=== PATIENT | male | born 1995 | race Caucasian/White ===

== ENCOUNTER 2019-03-03 15:43 | Inpatient (IN) | payer SELFPAY ==
[~2019-03-03] VITALS: Ht 172.7 cm; Wt 51.3 kg
[2019-03-03] MEDS ORDERED: IV NORMAL SALINE 1000ML BAG 1,000 ML IV ONE ×2 (16:15)
--- NOTE | 2019-03-03 16:15 | PHYS DOC ---
Adult General Chief Complaint Chief Complaint: BLOOD SUGAR PROBLEM HPI HPI Patient is a 23 year old male who presents with urinary frequency and excessive thirst, dizziness, blurred vision since last night. Patient is a diabetic type I and states that he does not regularly check his blood sugars and is on insulin. When I asked him how much insulin he takes he says it depends on how high his blood sugar is or what he's 8. Patient states he did not check his blood sugar this morning but yet gave himself 8 units of insulin. Patient states he ate a granola bar this morning. He denies any nausea, vomiting, abdominal pain, chest pain, shortness of air, diarrhea, numbness or tingling, syncope. Patient states he's also on lisinopril for high blood pressure. Patient states he took his medications as he supposed to this morning. Patient states he cannot remember the name of his primary care provider. Review of Systems Review of Systems Eyes: Denies change in visual acuity, redness, or eye pain. Blurred vision [] Neurologic: Dizziness, Denies headache, focal weakness or sensory changes [] Endocrine: polyuria or polydipsia [] All other systems were reviewed and found to be within normal limits, except as documented in this note. Current Medications Current Medications Current Medications Medications (Trade) Dose Ordered Sig/Edouard Start Time Stop Time Status Last Admin Dose Admin Acetaminophen (Tylenol) 650 mg PRN Q4HRS PRN 03/03/19 18:00 03/04/19 17:59 UNV Fentanyl Citrate (Fentanyl 2ml Vial) 50 mcg PRN Q1HR PRN 03/03/19 18:00 03/04/19 17:59 UNV Insulin Human Regular 150 ml @ 0 mls/hr CONT PRN PRN 03/03/19 17:00 03/03/19 23:00 03/03/19 17:21 7.3 MLS/HR Insulin Human Regular (HumuLIN R VIAL) 10 unit 1X ONCE 03/03/19 17:00 03/03/19 17:01 DC 03/03/19 17:07 10 UNIT Insulin Human Regular 150 unit/ Sodium Chloride 151.5 ml @ 0 mls/hr CONT PRN PRN 03/03/19 23:00 Ondansetron HCl (Zofran) 4 mg PRN Q8HRS PRN 03/03/19 18:00 03/04/19 17:59 UNV Potassium Chloride/Water 100 ml @ 100 mls/hr PRN Q1HR PRN 03/03/19 16:45 Sodium Chloride 1,000 ml @ 100 mls/hr Q10H 03/03/19 17:46 03/04/19 17:45 UNV Allergies Allergies Allergies Coded Allergies Type Severity Reaction Last Updated Verified No Known Drug Allergies 03/03/19 No Physical Exam Physical Exam Constitutional: Well developed, well nourished, no acute distress, non-toxic appearance. [] HENT: Normocephalic, atraumatic, bilateral external ears normal, oropharynx moist, no oral exudates, nose normal. [] Eyes: PERRLA, EOMI, conjunctiva normal, no discharge. [] Neck: Normal range of motion, no tenderness, supple, no stridor. [] Cardiovascular:Heart rate tachy regular rhythm, no murmur [] Lungs & Thorax: Bilateral breath sounds clear to auscultation [] Abdomen: Bowel sounds normal, soft, no tenderness, no masses, no pulsatile jeevan s. [] Skin: Pale, Warm, dry, no erythema, no rash. [] Extremities: No tenderness, no cyanosis, no clubbing, ROM intact, no edema. [] Neurologic: Alert and oriented X 3, normal motor function, normal sensory function, no focal deficits noted. [] Psychologic: Affect normal, judgement normal, mood normal. [] Current Patient Data Vital Signs Vital Signs Date Time Temp Pulse Resp B/P (MAP) Pulse Ox O2 Delivery O2 Flow Rate FiO2 03/03/19 15:58 97.7 136 18 98/70 (79) 98 Room Air 97.7 Lab Values Laboratory Tests Test 03/03/19 16:02 03/03/19 16:10 03/03/19 17:13 Glucose (Fingerstick) 495 mg/dL (70-99) H 423 mg/dL (70-99) H White Blood Count 11.7 x10^3/uL (4.0-11.0) H Red Blood Count 5.17 x10^6/uL (4.30-5.70) Hemoglobin 16.7 g/dL (13.0-17.5) Hematocrit 48.2 % (39.0-53.0) Mean Corpuscular Volume 93 fL (79-100) Mean Corpuscular Hemoglobin 32 pg (25-35) Mean Corpuscular Hemoglobin Concent 35 g/dL (31-37) Red Cell Distribution Width 12.5 % (11.5-14.5) Platelet Count 439 x10^3/uL (140-400) H Neutrophils (%) (Auto) 72 % (31-73) Lymphocytes (%) (Auto) 21 % (24-48) L Monocytes (%) (Auto) 6 % (0-9) Eosinophils (%) (Auto) 0 % (0-3) Basophils (%) (Auto) 1 % (0-3) Neutrophils # (Auto) 8.5 x10^3/uL (1.8-7.7) H Lymphocytes # (Auto) 2.5 x10^3/uL (1.0-4.8) Monocytes # (Auto) 0.7 x10^3/uL (0.0-1.1) Eosinophils # (Auto) 0.0 x10^3/uL (0.0-0.7) Basophils # (Auto) 0.1 x10^3/uL (0.0-0.2) Sodium Level 131 mmol/L (136-145) L Potassium Level 4.5 mmol/L (3.5-5.1) Chloride Level 88 mmol/L (98-107) L Carbon Dioxide Level 17 mmol/L (21-32) L Anion Gap 26 (6-14) H Blood Urea Nitrogen 14 mg/dL (8-26) Creatinine 1.6 mg/dL (0.7-1.3) H Estimated GFR (Cockcroft-Gault) 54.8 BUN/Creatinine Ratio 9 (6-20) Glucose Level 499 mg/dL (70-99) H Calcium Level 10.3 mg/dL (8.5-10.1) H Magnesium Level 1.9 mg/dL (1.8-2.4) Total Bilirubin 1.0 mg/dL (0.2-1.0) Aspartate Amino Transferase (AST) 11 U/L (15-37) L Alanine Aminotransferase (ALT) 36 U/L (16-63) Alkaline Phosphatase 93 U/L (46-116) Total Protein 8.0 g/dL (6.4-8.2) Albumin 4.0 g/dL (3.4-5.0) Albumin/Globulin Ratio 1.0 (1.0-1.7) Acetone Level Mod pos (NEG) Laboratory Tests 03/03/19 16:10 Laboratory Tests 03/03/19 16:10 EKG EKG Sinus Tachycardia, no STEMI Interpretation Time: [address] Peng Radiology/Procedures Radiology/Procedures [] Impressions: [facility] [address] [place] [address] IMAGING REPORT Signed PATIENT: SUGEY MALONE ACCOUNT: [id number] : 1995 LOCATION: ER AGE: 23 SEX: M EXAM STATUS: REG ER ORD. PHYSICIAN: TRACEY DILLON APRN REASON: dizziness PROCEDURE: PORTABLE CHEST 1V EXAM: Chest, single view. HISTORY: Dizziness. COMPARISON: None. FINDINGS: A frontal view of the chest is obtained. There is no infiltrate, pleural effusion or pneumothorax. The heart is normal in size. IMPRESSION: No acute pulmonary finding. Electronically signed by: Shanti Patterson MD (03/03/2019 4:36 PM) [facility] DICTATED and SIGNED BY: SHANTI PATTERSON MD DATE: 03/03/19 163 Course & Med Decision Making Course & Med Decision Making Alert and oriented. Ambulatory steady gait. Patient is pale but skin is warm and dry. PERRLA. Speaks in full clear sentences. Heart rate in the 130s, 20rr and blood pressure is 98/70. Glucose is 495 with ED glucose machine. Abdomen is soft and nontender. No extremity swelling. Lungs are clear to auscultation in all lobes. No focal motor or sensory deficits. 1642: Patient has become nauseated and is given zofran. I have also ordered Insulin 10u.\ I Have spoken to Dr. jaimes for admission. Patient going ICU. Dragon Disclaimer Dragon Disclaimer This electronic medical record was generated, in whole or in part, using a voice recognition dictation system. Departure Departure Impression: Primary Impression: DKA (diabetic ketoacidoses) Disposition: ADMITTED INPATIENT Admitting Physician: QUEENIE Condition: STABLE Referrals: NO PCP (PCP) Problem Qualifiers Primary Impression: DKA (diabetic ketoacidoses) Diabetes mellitus type: type 2 Diabetes mellitus complication detail: without coma Qualified Codes: E11.10 - Type 2 diabetes mellitus with ketoacidosis without coma TRACEY DILLON ACCOUNTING MANAGER Mar 03, 2019 16:15
[2019-03-03 16:20] LABS: BASO # 0.1 x10^3/uL (0.0-0.2); BASO % 1 % (0-3); EOS % 0 % (0-3); HEMATOCRIT 48.2 % (39.0-53.0); HEMOGLOBIN 16.7 g/dL (13.0-17.5); LYMPH # 2.5 x10^3/uL (1.0-4.8); LYMPH % 21 % (24-48); MEAN CORPUSCULAR HEMOGLOBIN 32 pg (25-35); MEAN CORPUSCULAR HGB CONC 35 g/dL (31-37); MEAN CORPUSCULAR VOLUME 93 fL (79-100); MONO # 0.7 x10^3/uL (0.0-1.1); MONO % 6 % (0-9); NEUT # 8.5 x10^3/uL (1.8-7.7); NEUT % 72 % (31-73); PLATELET COUNT 439 x10^3/uL (140-400); RED BLOOD COUNT 5.17 x10^6/uL (4.30-5.70); RED CELL DISTRIBUTION WIDTH 12.5 % (11.5-14.5); WHITE BLOOD COUNT 11.7 x10^3/uL (4.0-11.0)
[2019-03-03 16:30] LABS: CALCIUM 10.3 mg/dL (8.5-10.1); CREATININE 1.6 mg/dL (0.7-1.3); GFR 54.8; POTASSIUM 4.5 mmol/L (3.5-5.1)
--- NOTE | 2019-03-03 16:39 | RAD ---
EXAM: Chest, single view. HISTORY: Dizziness. COMPARISON: None. FINDINGS: A frontal view of the chest is obtained. There is no infiltrate, pleural effusion or pneumothorax. The heart is normal in size. IMPRESSION: No acute pulmonary finding. Electronically signed by: Shanti Jackson MD (03/03/2019 4:36 PM) [place] [id number]
[2019-03-03] MEDS ORDERED: POTASSIUM CHLORIDE 10MEQ 100 ML IV PRN ×3 (16:45)
[2019-03-03] MEDS ORDERED: ONDANSETRON PF 4 MG/2 ML VIAL. IV ONE (16:45)
[2019-03-03] MEDS ORDERED: INSULIN REGULAR 100 UNIT/ML 3ML VIAL. IV ONE (17:00)
[2019-03-03] MEDS ORDERED: INSULIN,REGULAR 150 UNIT DRIP 150 ML IV PRN (17:00)
[2019-03-03] MEDS ORDERED: IV NORMAL SALINE 1000ML BAG 1,000 ML IV SCH ×2 (17:46→19:00)
[2019-03-03] MEDS ORDERED: ACETAMINOPHEN 325 MG TABLET. PO PRN (18:00)
[2019-03-03] MEDS ORDERED: ONDANSETRON PF 4 MG/2 ML VIAL. IV PRN (18:00)
[2019-03-03 18:28] LABS: BARBITURATES NEG (NEG); BENZODIAZEPINES NEG (NEG); CANNABINOIDS NEG (NEG); COCAINE NEG (NEG); METHADONE NEG (NEG); OPIATES NEG (NEG); PHENCYCLIDINE NEG (NEG)
[2019-03-03 18:29] LABS: AMPHETAMINE/METHAMPHETAMINE NEG (NEG)
[2019-03-03 18:37] LABS: BILIRUBIN,URINE NEGATIVE (NEG); CLARITY,URINE CLEAR; COLOR,URINE YELLOW; NITRITE,URINE NEGATIVE (NEG); PROTEIN,URINE NEGATIVE (NEG-TRACE); UROBILINOGEN,URINE 0.2 mg/dL (0.2 mg/dL)
[2019-03-03 18:48] LABS: BACTERIA,URINE 0 /HPF (0-FEW); RBC,URINE 0 /HPF (0-2); SQUAMOUS EPITHELIAL CELL,UR OCC /LPF
[2019-03-03] MEDS ORDERED: IV DEXTROSE 5% - 0.9 % NACL 1,000 ML IV SCH (19:45)
[2019-03-03 20:00] VITALS: BP 100/63
[2019-03-03] MEDS: fentaNYL PF VIAL 100 MCG/2 ML VIAL IV PRN (20:12)
[2019-03-03 20:15] VITALS: BP 86/63
--- NOTE | 2019-03-03 20:20 | NUR ---
Patient arrived to room 104 via gurney accompanied by ED RN AND process safety engineering technologist at 1999. Patient attached to ICU monitors--ST on monitor. Patient on RA, no complaints of nausea at this time, complaining of 5/10 pain in stomach, S1S2 heart tones heard, bowel sounds active, IV patent, fluids running at 250 cc/hr--will change to D5NS per DKA protocol. Labs entered to be drawn at 2009. Insulin gtt running. Glucostabilizer initiated. Patient oriented to unit routines, call light, bed controls, tv controls, diet (ADA), and activity level (self turn in bed). Patient very pleasant and cooperative, all admission questions answered. Will continue to monitor--see admission documentation. Reassessments of Insulin gtt and fluids not completed by ED RN--documented as "not done" by this RN.
[2019-03-03 20:30] VITALS: BP 131/66
--- NOTE | 2019-03-03 20:40 | PDOC1 ---
History and Physical Date of Admission Date of Admission DATE: 03/03/19 TIME: 20:40 Source Source: Chart review, Patient History of Present Illness History of Present Illness Glen is a 23 year old male admit to ICU in DKA. He complained of increased urinary frequency and excessive thirst, dizziness, blurred vision for 12 hours about. Type 1 diabetic, and has not checked his blood sugar regularly. he was maybe not feeling well enough to provide a clear history in the ER, but later felt improved, and he reports taking 28 u Lantus and 20 u with meals, depending on volume of meals, Patient states he did not check his blood sugar this morning but yet gave himself 8 units of insulin. he has nausea but no pain, he lives with his brother, has no job, no insurance, cannot recall his PC provider Past Medical History Cardiovascular: No pertinent hx Pulmonary: No pertinent hx Endocrine: Diabetes Family History Family History: No Significant Social History Smoke: No ALCOHOL: none Current Problem List Problem List Problems Medical Problems: (1) DKA (diabetic ketoacidoses) Status: Acute Current Medications Current Medications Current Medications Sodium Chloride 1,000 ml @ 1,000 mls/hr 1X ONCE IV Last administered on 03/03/19at 16:16; Start 03/03/19 at 16:15; Stop 03/03/19 at 17:14; Status DC Sodium Chloride 1,000 ml @ 1,000 mls/hr 1X ONCE IV Last administered on 03/03/19at 17:09; Start 03/03/19 at 16:15; Stop 03/03/19 at 17:14; Status DC Ondansetron HCl (Zofran) 4 mg 1X ONCE IV Last administered on 03/03/19at 17:04; Start 03/03/19 at 16:45; Stop 03/03/19 at 16:46; Status DC Insulin Human Regular 150 unit/ Sodium Chloride 151.5 ml @ 0 mls/hr CONT PRN PRN IV PER PROTOCOL; Start 03/03/19 at 23:00 Potassium Chloride/Water 100 ml @ 100 mls/hr PRN Q1HR PRN IV SEE COMMENTS; Start 03/03/19 at 16:45 Potassium Chloride/Water 100 ml @ 100 mls/hr PRN Q1HR PRN IV SEE COMMENTS; Start 03/03/19 at 16:45 Potassium Chloride/Water 100 ml @ 100 mls/hr PRN Q1HR PRN IV SEE COMMENTS; Start 03/03/19 at 16:45 Insulin Human Regular (HumuLIN R VIAL) 10 unit 1X ONCE IV Last administered on 03/03/19at 17:07; Start 03/03/19 at 17:00; Stop 03/03/19 at 17:01; Status DC Insulin Human Regular 150 ml @ 0 mls/hr CONT PRN PRN IV PER PROTOCOL Last administered on 03/03/19at 17:21; Start 03/03/19 at 17:00; Stop 03/03/19 at 23:00 Ondansetron HCl (Zofran) 4 mg PRN Q8HRS PRN IV NAUSEA/VOMITING Last administered on 03/03/19at 17:59; Start 03/03/19 at 18:00; Stop 03/04/19 at 17:59 Fentanyl Citrate (Fentanyl 2ml Vial) 50 mcg PRN Q1HR PRN IV PAIN Last administered on 03/03/19at 20:12; Start 03/03/19 at 18:00; Stop 03/04/19 at 17:59 Sodium Chloride 1,000 ml @ 100 mls/hr Q10H IV ; Start 03/03/19 at 17:46; Stop 03/03/19 at 18:50; Status DC Acetaminophen (Tylenol) 650 mg PRN Q4HRS PRN PO FEVER; Start 03/03/19 at 18:00; Stop 03/04/19 at 17:59 Sodium Chloride 1,000 ml @ 250 mls/hr Q4H IV Last administered on 03/03/19at 18:58; Start 03/03/19 at 19:00; Stop 03/03/19 at 19:41; Status DC Dextrose/Sodium Chloride 1,000 ml @ 250 mls/hr Q4H IV Last administered on 03/03/19at 19:45; Start 03/03/19 at 19:45 Allergies Allergies: Coded Allergies: No Known Drug Allergies (Unverified , 03/03/19) ROS General: YES: Fatigue, Malaise PSYCHOLOGICAL ROS: No: Anxiety, Behavioral Disorder, Concentration difficultie, Decreased libido, Depression, Disorientation, Hallucinations, Hostility, Irritablity, Memory difficulties, Mood Swings, Obsessive thoughts, Other Eyes: No Blurry vision, No Decreased vision, No Double vision, No Dry eyes, No Excessive tearing, No Eye Pain, No Itchy Eyes, No Loss of vision, No Photophobia, No Scotomata, No Uses contacts, No Uses glasses, No Other HEENT: No: Heacaches, Visual Changes, Hearing change, Nasal congestion, Nasal discharge, Oral lesions, Sinus pain, Sore Throat, Epistaxis, Sneezing, Snoring, Tinnitus, Vertigo, Vocal changes, Other Respiratory: No: Cough, Hemoptysis, Orthopnea, Pleuritic Pain, Shortness of breath, SOB with excertion, Sputum Changes, Stridor, Tachypnea, Wheezing, Other Cardiovascular: No Chest Pain, No Palpitations, No Orthopnea, No Paroxysmal Noc. Dyspnea, No Edema, No Lt Headedness, No Other Gastrointestinal: Yes Nausea; No Vomiting, No Abdominal Pain, No Diarrhea, No Constipation, No Melena, No Hematochezia, No Other Genitourinary: No Dysuria, No Frequency, No Incontinence, No Hematuria, No Retention, No Discharge, No Urgency, No Pain, No Flank Pain, No Other, No , No , No , No , No , No , No Musculoskeletal: No Gait Disturbance, No Joint Pain, No Joint Stiffness, No Joint Swelling, No Muscle Pain, No Muscular Weakness, No Pain In:, No Swelling In:, No Other Neurological: No Behavorial Changes, No Bowel/Bladder ControlChng, No Confusion, No Dizziness, No Gait Disturbance, No Headaches, No Impaired Coord/balance, No Memory Loss, No Numbness/Tingling, No Seizures, No Speech Problems, No Tremors, No Visual Changes, No Weakness, No Other Skin: No Dry Skin, No Eczema, No Hair Changes, No Lumps, No Mole Changes, No Mottling, No Nail Changes, No Pruritus, No Rash, No Skin Lesion Changes, No Other, No Acne Physical Exam General: Alert, Oriented X3, Cooperative, No acute distress HEENT: Atraumatic, PERRLA Lungs: Clear to auscultation Heart: S1S2, no gallops, no murmurs Abdomen: Soft Extremities: No clubbing, Normal pulses Skin: No rashes, No breakdown, No significant lesion Neuro: Normal tone, Sensation intact Psych/Mental Status: Mood NL Vitals Vitals Vital Signs Date Time Temp Pulse Resp B/P (MAP) Pulse Ox O2 Delivery O2 Flow Rate FiO2 03/03/19 20:12 13 100 Room Air 03/03/19 17:29 118 103/56 (72) 03/03/19 15:58 97.7 97.7 Labs Labs Laboratory Tests Test 03/03/19 16:02 03/03/19 16:10 03/03/19 17:13 03/03/19 18:15 Glucose (Fingerstick) 495 mg/dL (70-99) 423 mg/dL (70-99) White Blood Count 11.7 x10^3/uL (4.0-11.0) Red Blood Count 5.17 x10^6/uL (4.30-5.70) Hemoglobin 16.7 g/dL (13.0-17.5) Hematocrit 48.2 % (39.0-53.0) Mean Corpuscular Volume 93 fL (79-100) Mean Corpuscular Hemoglobin 32 pg (25-35) Mean Corpuscular Hemoglobin Concent 35 g/dL (31-37) Red Cell Distribution Width 12.5 % (11.5-14.5) Platelet Count 439 x10^3/uL (140-400) Neutrophils (%) (Auto) 72 % (31-73) Lymphocytes (%) (Auto) 21 % (24-48) Monocytes (%) (Auto) 6 % (0-9) Eosinophils (%) (Auto) 0 % (0-3) Basophils (%) (Auto) 1 % (0-3) Neutrophils # (Auto) 8.5 x10^3/uL (1.8-7.7) Lymphocytes # (Auto) 2.5 x10^3/uL (1.0-4.8) Monocytes # (Auto) 0.7 x10^3/uL (0.0-1.1) Eosinophils # (Auto) 0.0 x10^3/uL (0.0-0.7) Basophils # (Auto) 0.1 x10^3/uL (0.0-0.2) Sodium Level 131 mmol/L (136-145) Potassium Level 4.5 mmol/L (3.5-5.1) Chloride Level 88 mmol/L (98-107) Carbon Dioxide Level 17 mmol/L (21-32) Anion Gap 26 (6-14) Blood Urea Nitrogen 14 mg/dL (8-26) Creatinine 1.6 mg/dL (0.7-1.3) Estimated GFR (Cockcroft-Gault) 54.8 BUN/Creatinine Ratio 9 (6-20) Glucose Level 499 mg/dL (70-99) Calcium Level 10.3 mg/dL (8.5-10.1) Magnesium Level 1.9 mg/dL (1.8-2.4) Total Bilirubin 1.0 mg/dL (0.2-1.0) Aspartate Amino Transf (AST/SGOT) 11 U/L (15-37) Alanine Aminotransferase (ALT/SGPT) 36 U/L (16-63) Alkaline Phosphatase 93 U/L (46-116) Total Protein 8.0 g/dL (6.4-8.2) Albumin 4.0 g/dL (3.4-5.0) Albumin/Globulin Ratio 1.0 (1.0-1.7) Acetone Level Mod pos (NEG) Urine Color Yellow Urine Clarity Clear Urine pH 5.0 Urine Specific [place] 1.020 Urine Protein Negative mg/dL (NEG-TRACE) Urine Glucose (UA) >=1000 mg/dL (NEG) Urine Ketones (Stick) >=80 mg/dL (NEG) Urine Blood Negative (NEG) Urine Nitrite Negative (NEG) Urine Bilirubin Negative (NEG) Urine Urobilinogen Dipstick 0.2 mg/dL (0.2 mg/dL) Urine Leukocyte Esterase Negative (NEG) Urine RBC 0 /HPF (0-2) Urine WBC 1-4 /HPF (0-4) Urine Squamous Epithelial Cells Occ /LPF Urine Bacteria 0 /HPF (0-FEW) Urine Opiates Screen Neg (NEG) Urine Methadone Screen Neg (NEG) Urine Barbiturates Neg (NEG) Urine Phencyclidine Screen Neg (NEG) Urine Amphetamine/Methamphetamine Neg (NEG) Urine Benzodiazepines Screen Neg (NEG) Urine Cocaine Screen Neg (NEG) Urine Cannabinoids Screen Neg (NEG) Urine Ethyl Alcohol Neg (NEG) Test 03/03/19 18:18 03/03/19 19:21 03/03/19 20:27 Glucose (Fingerstick) 343 mg/dL (70-99) 219 mg/dL (70-99) 168 mg/dL (70-99) Laboratory Tests Test 03/03/19 16:02 03/03/19 16:10 03/03/19 17:13 03/03/19 18:15 Glucose (Fingerstick) 495 mg/dL (70-99) 423 mg/dL (70-99) White Blood Count 11.7 x10^3/uL (4.0-11.0) Red Blood Count 5.17 x10^6/uL (4.30-5.70) Hemoglobin 16.7 g/dL (13.0-17.5) Hematocrit 48.2 % (39.0-53.0) Mean Corpuscular Volume 93 fL (79-100) Mean Corpuscular Hemoglobin 32 pg (25-35) Mean Corpuscular Hemoglobin Concent 35 g/dL (31-37) Red Cell Distribution Width 12.5 % (11.5-14.5) Platelet Count 439 x10^3/uL (140-400) Neutrophils (%) (Auto) 72 % (31-73) Lymphocytes (%) (Auto) 21 % (24-48) Monocytes (%) (Auto) 6 % (0-9) Eosinophils (%) (Auto) 0 % (0-3) Basophils (%) (Auto) 1 % (0-3) Neutrophils # (Auto) 8.5 x10^3/uL (1.8-7.7) Lymphocytes # (Auto) 2.5 x10^3/uL (1.0-4.8) Monocytes # (Auto) 0.7 x10^3/uL (0.0-1.1) Eosinophils # (Auto) 0.0 x10^3/uL (0.0-0.7) Basophils # (Auto) 0.1 x10^3/uL (0.0-0.2) Sodium Level 131 mmol/L (136-145) Potassium Level 4.5 mmol/L (3.5-5.1) Chloride Level 88 mmol/L (98-107) Carbon Dioxide Level 17 mmol/L (21-32) Anion Gap 26 (6-14) Blood Urea Nitrogen 14 mg/dL (8-26) Creatinine 1.6 mg/dL (0.7-1.3) Estimated GFR (Cockcroft-Gault) 54.8 BUN/Creatinine Ratio 9 (6-20) Glucose Level 499 mg/dL (70-99) Calcium Level 10.3 mg/dL (8.5-10.1) Magnesium Level 1.9 mg/dL (1.8-2.4) Total Bilirubin 1.0 mg/dL (0.2-1.0) Aspartate Amino Transf (AST/SGOT) 11 U/L (15-37) Alanine Aminotransferase (ALT/SGPT) 36 U/L (16-63) Alkaline Phosphatase 93 U/L (46-116) Total Protein 8.0 g/dL (6.4-8.2) Albumin 4.0 g/dL (3.4-5.0) Albumin/Globulin Ratio 1.0 (1.0-1.7) Acetone Level Mod pos (NEG) Urine Color Yellow Urine Clarity Clear Urine pH 5.0 Urine Specific [place] 1.020 Urine Protein Negative mg/dL (NEG-TRACE) Urine Glucose (UA) >=1000 mg/dL (NEG) Urine Ketones (Stick) >=80 mg/dL (NEG) Urine Blood Negative (NEG) Urine Nitrite Negative (NEG) Urine Bilirubin Negative (NEG) Urine Urobilinogen Dipstick 0.2 mg/dL (0.2 mg/dL) Urine Leukocyte Esterase Negative (NEG) Urine RBC 0 /HPF (0-2) Urine WBC 1-4 /HPF (0-4) Urine Squamous Epithelial Cells Occ /LPF Urine Bacteria 0 /HPF (0-FEW) Urine Opiates Screen Neg (NEG) Urine Methadone Screen Neg (NEG) Urine Barbiturates Neg (NEG) Urine Phencyclidine Screen Neg (NEG) Urine Amphetamine/Methamphetamine Neg (NEG) Urine Benzodiazepines Screen Neg (NEG) Urine Cocaine Screen Neg (NEG) Urine Cannabinoids Screen Neg (NEG) Urine Ethyl Alcohol Neg (NEG) Test 03/03/19 18:18 03/03/19 19:21 03/03/19 20:27 Glucose (Fingerstick) 343 mg/dL (70-99) 219 mg/dL (70-99) 168 mg/dL (70-99) VTE Prophylaxis Ordered VTE Prophylaxis Devices: No VTE Pharmacological Prophylaxi: Yes Assessment/Plan Assessment/Plan diabetic ketoacidosis, suspect poor compliance admit to ICU, insulin gtt protocol DM1 underweight, BMI 17.4 withdrawn affect, suspect depression VIC ABDALLA MD Mar 03, 2019 20:40
[2019-03-03 20:45] VITALS: BP 124/76
[2019-03-03 20:52] LABS: GFR 94.3; MAGNESIUM 1.6 mg/dL (1.8-2.4); PHOSPHORUS 3.8 mg/dL (2.6-4.7); POTASSIUM 3.9 mmol/L (3.5-5.1)
[2019-03-03 21:00] VITALS: BP 116/59
[2019-03-03] MEDS ORDERED: DEXTROSE 50% 25 GM / 50ML DISP.SYRIN. IV PRN (21:15)
--- NOTE | 2019-03-03 21:30 | NUR ---
Patient's labs resulted--anion gap closed. Dr. Grimaldo paged--Dr. Grimaldo arrived onto unit a few minutes later. Updated on patient condition and MD went to see patient. Orders received to give 28 units of Lantus x1, stop DKA protocol including glucostabilizer/insulin gtt, start NS at 100 cc/hr, give 20 mEQ Potassium PO, start moderate sliding scale insulin with 15 units at meals, restart Paroxetine for tomorrow but hold Lisinopril, and if possible to get bed [place] [facility] [place]
[2019-03-03] MEDS ORDERED: LISI-334 PO (21:36)
[2019-03-03] MEDS ORDERED: PARO20TA3 PO (21:36)
[2019-03-03] MEDS ORDERED: POTASSIUM CHLORIDE 20 MEQ TABLET.ER. PO ONE (21:45)
[2019-03-03] MEDS: IV NORMAL SALINE 1000ML BAG 1,000 ML IV SCH (21:46)
[2019-03-03] MEDS ORDERED: INSULIN GLARGINE SYRINGE. SQ ONE (22:00)
[2019-03-03] MEDS ORDERED: INSULIN GLARGINE SYRINGE. SQ SCH (22:00)
[2019-03-03] MEDS ORDERED: INSULIN REGULAR VIAL 150 UNIT in 0.9 % SODIUM CHLORIDE 150ML 150 ML IV PRN (23:00)
[2019-03-04] VITALS (7 sets, daily range): BP systolic 118–162; BP diastolic 76–111
[2019-03-04 04:46] LABS: BASO % 0 % (0-3); EOS # 0.2 x10^3/uL (0.0-0.7); EOS % 1 % (0-3); HEMATOCRIT 40.5 % (39.0-53.0); HEMOGLOBIN 14.2 g/dL (13.0-17.5); LYMPH # 2.5 x10^3/uL (1.0-4.8); LYMPH % 23 % (24-48); MEAN CORPUSCULAR HEMOGLOBIN 32 pg (25-35); MEAN CORPUSCULAR HGB CONC 35 g/dL (31-37); MEAN CORPUSCULAR VOLUME 92 fL (79-100); MONO # 0.7 x10^3/uL (0.0-1.1); MONO % 6 % (0-9); NEUT # 7.7 x10^3/uL (1.8-7.7); NEUT % 70 % (31-73); PLATELET COUNT 317 x10^3/uL (140-400); RED BLOOD COUNT 4.41 x10^6/uL (4.30-5.70); RED CELL DISTRIBUTION WIDTH 12.4 % (11.5-14.5); WHITE BLOOD COUNT 11.1 x10^3/uL (4.0-11.0)
[2019-03-04 05:00] LABS: CALCIUM 8.8 mg/dL (8.5-10.1); CREATININE 0.8 mg/dL (0.7-1.3); MAGNESIUM 1.5 mg/dL (1.8-2.4); POTASSIUM 3.8 mmol/L (3.5-5.1)
--- NOTE | 2019-03-04 07:28 | EKG ---
[facility] [address] [place] [address] Test Date: 2019-03-03 Test Time: 16:15:15 Pat Name: SUGEY MALONE Department: Room: Gender: M Utilization Coordinator: : 1995 Requested By: TRACEY DILLON Order Number: [id number] Reading MD: Measurements Intervals [place] Rate: 129 P: 74 IA: 100 QRS: -102 QRSD: 84 T: 78 QT: 302 QTc: 444 Interpretive Statements SINUS TACHYCARDIA ABNORMAL RIGHT SUPERIOR AXIS DEVIATION S1,S2,S3 PATTERN ST & T ABNORMALITY, CONSIDER HIGH LATERAL ISCHEMIA OR LEFT VENTRICULAR STRAIN ABNORMAL ECG RI6.01 No previous ECG available for comparison
[2019-03-04] MEDS: INSULIN LISPRO 300 UNITS/3 ML VIAL. SQ SCH ×6 (09:01→17:27)
[2019-03-04] MEDS: IV NORMAL SALINE 1000ML BAG 1,000 ML IV SCH ×3 (09:06→20:09)
--- NOTE | 2019-03-04 11:00 | NUR ---
SS following for discharge planning. SS reviewed pt chart. Pt is self pay pt. HCFS following for self pay status. Pt is from home and is currently on room air. SS will continue to follow for discharge planning.
[2019-03-04] MEDS: PARoxetine 20 MG TABLET PO SCH (12:01)
--- NOTE | 2019-03-04 13:03 | PDOC ---
[employer] PROGRESS NOTE Chief Complaint Chief Complaint DKA History of Present Illness History of Present Illness Patient is a 23 year old male who presents with urinary frequency and excessive thirst, dizziness, blurred vision since last night. Patient is a diabetic type I and states that he does not regularly check his blood sugars and is on insulin. When I asked him how much insulin he takes he says it depends on how high his blood sugar is or what he's 8. Patient states he did not check his blood sugar this morning but yet gave himself 8 units of insulin. Patient states he ate a granola bar this morning. He denies any nausea, vomiting, abdominal pain, chest pain, shortness of air, diarrhea, numbness or tingling, syncope. Patient states he's also on lisinopril for high blood pressure. Patient states he took his medications as he supposed to this morning. Patient states he cannot remember the name of his primary care provider. Patient was seen and examined in ICU, patient was tachycardic, will begin beta- blockade. Patient seems in good spirits. Vitals/I&O Vitals/I&O: Vital Signs Date Time Temp Pulse Resp B/P (MAP) Pulse Ox O2 Delivery O2 Flow Rate FiO2 03/04/19 12:00 120 19 150/87 (108) 99 Room Air 03/04/19 08:00 98.2 98.2 I & O 03/03/19 03/03/19 03/04/19 15:00 23:00 07:00 Intake Total 2000 ml 1921 ml Output Total 775 ml Balance 2000 ml 1146 ml Physical Exam General: Alert, Oriented X3, Cooperative, No acute distress Heart: Normal S1, Normal S2, Other (Tachycardic ) Abdomen: Soft Extremities: No clubbing, Normal pulses Skin: No rashes, No breakdown, No significant lesion Labs Labs: Laboratory Tests Test 03/03/19 16:02 03/03/19 16:10 03/03/19 17:13 03/03/19 18:15 Glucose (Fingerstick) 495 mg/dL (70-99) 423 mg/dL (70-99) White Blood Count 11.7 x10^3/uL (4.0-11.0) Red Blood Count 5.17 x10^6/uL (4.30-5.70) Hemoglobin 16.7 g/dL (13.0-17.5) Hematocrit 48.2 % (39.0-53.0) Mean Corpuscular Volume 93 fL (79-100) Mean Corpuscular Hemoglobin 32 pg (25-35) Mean Corpuscular Hemoglobin Concent 35 g/dL (31-37) Red Cell Distribution Width 12.5 % (11.5-14.5) Platelet Count 439 x10^3/uL (140-400) Neutrophils (%) (Auto) 72 % (31-73) Lymphocytes (%) (Auto) 21 % (24-48) Monocytes (%) (Auto) 6 % (0-9) Eosinophils (%) (Auto) 0 % (0-3) Basophils (%) (Auto) 1 % (0-3) Neutrophils # (Auto) 8.5 x10^3/uL (1.8-7.7) Lymphocytes # (Auto) 2.5 x10^3/uL (1.0-4.8) Monocytes # (Auto) 0.7 x10^3/uL (0.0-1.1) Eosinophils # (Auto) 0.0 x10^3/uL (0.0-0.7) Basophils # (Auto) 0.1 x10^3/uL (0.0-0.2) Sodium Level 131 mmol/L (136-145) Potassium Level 4.5 mmol/L (3.5-5.1) Chloride Level 88 mmol/L (98-107) Carbon Dioxide Level 17 mmol/L (21-32) Anion Gap 26 (6-14) Blood Urea Nitrogen 14 mg/dL (8-26) Creatinine 1.6 mg/dL (0.7-1.3) Estimated GFR (Cockcroft-Gault) 54.8 BUN/Creatinine Ratio 9 (6-20) Glucose Level 499 mg/dL (70-99) Calcium Level 10.3 mg/dL (8.5-10.1) Magnesium Level 1.9 mg/dL (1.8-2.4) Total Bilirubin 1.0 mg/dL (0.2-1.0) Aspartate Amino Transf (AST/SGOT) 11 U/L (15-37) Alanine Aminotransferase (ALT/SGPT) 36 U/L (16-63) Alkaline Phosphatase 93 U/L (46-116) Total Protein 8.0 g/dL (6.4-8.2) Albumin 4.0 g/dL (3.4-5.0) Albumin/Globulin Ratio 1.0 (1.0-1.7) Acetone Level Mod pos (NEG) Urine Color Yellow Urine Clarity Clear Urine pH 5.0 Urine Specific [place] 1.020 Urine Protein Negative mg/dL (NEG-TRACE) Urine Glucose (UA) >=1000 mg/dL (NEG) Urine Ketones (Stick) >=80 mg/dL (NEG) Urine Blood Negative (NEG) Urine Nitrite Negative (NEG) Urine Bilirubin Negative (NEG) Urine Urobilinogen Dipstick 0.2 mg/dL (0.2 mg/dL) Urine Leukocyte Esterase Negative (NEG) Urine RBC 0 /HPF (0-2) Urine WBC 1-4 /HPF (0-4) Urine Squamous Epithelial Cells Occ /LPF Urine Bacteria 0 /HPF (0-FEW) Urine Opiates Screen Neg (NEG) Urine Methadone Screen Neg (NEG) Urine Barbiturates Neg (NEG) Urine Phencyclidine Screen Neg (NEG) Urine Amphetamine/Methamphetamine Neg (NEG) Urine Benzodiazepines Screen Neg (NEG) Urine Cocaine Screen Neg (NEG) Urine Cannabinoids Screen Neg (NEG) Urine Ethyl Alcohol Neg (NEG) Test 03/03/19 18:18 03/03/19 19:21 03/03/19 20:20 03/03/19 20:27 Glucose (Fingerstick) 343 mg/dL (70-99) 219 mg/dL (70-99) 168 mg/dL (70-99) Sodium Level 138 mmol/L (136-145) Potassium Level 3.9 mmol/L (3.5-5.1) Chloride Level 102 mmol/L (98-107) Carbon Dioxide Level 22 mmol/L (21-32) Anion Gap 14 (6-14) Blood Urea Nitrogen 12 mg/dL (8-26) Creatinine 1.0 mg/dL (0.7-1.3) Estimated GFR (Cockcroft-Gault) 94.3 Glucose Level 205 mg/dL (70-99) Lactic Acid Level 1.3 mmol/L (0.4-2.0) Calcium Level 9.0 mg/dL (8.5-10.1) Phosphorus Level 3.8 mg/dL (2.6-4.7) Magnesium Level 1.6 mg/dL (1.8-2.4) Test 03/03/19 22:10 03/04/19 01:14 03/04/19 03:56 03/04/19 04:15 Glucose (Fingerstick) 168 mg/dL (70-99) 98 mg/dL (70-99) 106 mg/dL (70-99) White Blood Count 11.1 x10^3/uL (4.0-11.0) Red Blood Count 4.41 x10^6/uL (4.30-5.70) Hemoglobin 14.2 g/dL (13.0-17.5) Hematocrit 40.5 % (39.0-53.0) Mean Corpuscular Volume 92 fL (79-100) Mean Corpuscular Hemoglobin 32 pg (25-35) Mean Corpuscular Hemoglobin Concent 35 g/dL (31-37) Red Cell Distribution Width 12.4 % (11.5-14.5) Platelet Count 317 x10^3/uL (140-400) Neutrophils (%) (Auto) 70 % (31-73) Lymphocytes (%) (Auto) 23 % (24-48) Monocytes (%) (Auto) 6 % (0-9) Eosinophils (%) (Auto) 1 % (0-3) Basophils (%) (Auto) 0 % (0-3) Neutrophils # (Auto) 7.7 x10^3/uL (1.8-7.7) Lymphocytes # (Auto) 2.5 x10^3/uL (1.0-4.8) Monocytes # (Auto) 0.7 x10^3/uL (0.0-1.1) Eosinophils # (Auto) 0.2 x10^3/uL (0.0-0.7) Basophils # (Auto) 0.0 x10^3/uL (0.0-0.2) Sodium Level 140 mmol/L (136-145) Potassium Level 3.8 mmol/L (3.5-5.1) Chloride Level 102 mmol/L (98-107) Carbon Dioxide Level 25 mmol/L (21-32) Anion Gap 13 (6-14) Blood Urea Nitrogen 7 mg/dL (8-26) Creatinine 0.8 mg/dL (0.7-1.3) Estimated GFR (Cockcroft-Gault) 122.0 Glucose Level 118 mg/dL (70-99) Calcium Level 8.8 mg/dL (8.5-10.1) Magnesium Level 1.5 mg/dL (1.8-2.4) Test 03/04/19 06:10 03/04/19 08:55 03/04/19 11:56 Glucose (Fingerstick) 140 mg/dL (70-99) 200 mg/dL (70-99) 140 mg/dL (70-99) Review of Systems Review of Systems: Patient denies chest pain and SOB. Assessment and Plan Assessmemt and Plan Problems Medical Problems: (1) DKA (diabetic ketoacidoses) Status: Acute (2) T1DM (type 1 diabetes mellitus) Status: Chronic (3) Underweight Status: Chronic Assessment: DKA Plan: 1. Continue ICU monitoring 2. Trend Anion Gap 3. Continue insulin 4. Continue fluids 5. begin beta blockade (metoprolol) for tachycardia 6. DVT prophylaxis 7. full code Comment Review of Relevant I have reviewed the following items lynn (where applicable) has been applied. Medications: Current Medications Medications (Trade) Dose Ordered Sig/Edouard Route PRN Reason Start Time Stop Time Status Last Admin Dose Admin Sodium Chloride 1,000 ml @ 1,000 mls/hr 1X ONCE IV 03/03/19 16:15 03/03/19 17:14 DC 03/03/19 16:16 Sodium Chloride 1,000 ml @ 1,000 mls/hr 1X ONCE IV 03/03/19 16:15 03/03/19 17:14 DC 03/03/19 17:09 Ondansetron HCl (Zofran) 4 mg 1X ONCE IV 03/03/19 16:45 03/03/19 16:46 DC 03/03/19 17:04 Insulin Human Regular (HumuLIN R VIAL) 10 unit 1X ONCE IV 03/03/19 17:00 03/03/19 17:01 DC 03/03/19 17:07 Insulin Human Regular 150 ml @ 0 mls/hr CONT PRN PRN IV PER PROTOCOL 03/03/19 17:00 03/03/19 21:20 DC 03/03/19 17:21 Ondansetron HCl (Zofran) 4 mg PRN Q8HRS PRN IV NAUSEA/VOMITING 03/03/19 18:00 03/04/19 17:59 03/03/19 17:59 Fentanyl Citrate (Fentanyl 2ml Vial) 50 mcg PRN Q1HR PRN IV PAIN 03/03/19 18:00 03/04/19 17:59 03/03/19 20:12 Sodium Chloride 1,000 ml @ 250 mls/hr Q4H IV 03/03/19 19:00 03/03/19 19:41 DC 03/03/19 18:58 Dextrose/Sodium Chloride 1,000 ml @ 250 mls/hr Q4H IV 03/03/19 19:45 03/03/19 21:20 DC 03/03/19 19:45 Sodium Chloride 1,000 ml @ 100 mls/hr Q10H IV 03/03/19 21:30 03/04/19 09:06 Potassium Chloride (Klor-Con) 20 meq 1X ONCE PO 03/03/19 21:45 03/03/19 21:46 DC 03/03/19 21:46 Insulin Human Lispro (HumaLOG) 15 units TIDWMEALS SQ 03/04/19 08:00 03/04/19 11:59 Insulin Human Lispro (HumaLOG) 0-7 UNITS TIDWMEALS SQ 03/04/19 08:00 03/04/19 09:02 Paroxetine HCl (Paxil) 20 mg DAILY PO 03/04/19 09:00 03/04/19 12:01 Insulin Glargine (Lantus Syringe) 28 unit 1X ONCE SQ 03/03/19 22:00 03/03/19 22:01 DC 03/03/19 22:12 FRED CURRIE III DO Mar 04, 2019 13:03
[2019-03-04] MEDS ORDERED: METOPROLOL TART IMMED RELEASE 25 MG TABLET. PO SCH (13:15)
[2019-03-04] MEDS ORDERED: METOPROLOL TART IMMED RELEASE 50 MG TABLET. PO SCH (13:15)
[2019-03-04] MEDS: fentaNYL PF VIAL 100 MCG/2 ML VIAL IV PRN (14:07)
[2019-03-04] MEDS: METOPROLOL TART IMMED RELEASE 25 MG TABLET. PO SCH (20:06)
[2019-03-04] MEDS: LOPERAMIDE 2 MG CAPSULE PO PRN (23:04)
[2019-03-05] MEDS: LOPERAMIDE 2 MG CAPSULE PO PRN (02:58)
[2019-03-05 03:03] VITALS: BP 148/92
[2019-03-05 04:57] LABS: BASO % 1 % (0-3); EOS # 0.1 x10^3/uL (0.0-0.7); EOS % 2 % (0-3); HEMATOCRIT 39.8 % (39.0-53.0); HEMOGLOBIN 14.2 g/dL (13.0-17.5); LYMPH # 2.4 x10^3/uL (1.0-4.8); LYMPH % 37 % (24-48); MEAN CORPUSCULAR HEMOGLOBIN 32 pg (25-35); MEAN CORPUSCULAR HGB CONC 36 g/dL (31-37); MEAN CORPUSCULAR VOLUME 91 fL (79-100); MONO # 0.4 x10^3/uL (0.0-1.1); MONO % 7 % (0-9); NEUT # 3.6 x10^3/uL (1.8-7.7); NEUT % 54 % (31-73); PLATELET COUNT 311 x10^3/uL (140-400); RED BLOOD COUNT 4.38 x10^6/uL (4.30-5.70); RED CELL DISTRIBUTION WIDTH 12.5 % (11.5-14.5); WHITE BLOOD COUNT 6.7 x10^3/uL (4.0-11.0)
[2019-03-05 05:48] LABS: ALBUMIN 3.2 g/dL (3.4-5.0); ALBUMIN/GLOBULIN RATIO 0.9 (1.0-1.7); CALCIUM 8.8 mg/dL (8.5-10.1); CREATININE 0.8 mg/dL (0.7-1.3); TOTAL BILIRUBIN 0.3 mg/dL (0.2-1.0); TOTAL PROTEIN 6.6 g/dL (6.4-8.2)
[2019-03-05 06:27] LABS: POTASSIUM 3.7 mmol/L (3.5-5.1)
[2019-03-05 06:54] VITALS: BP 156/106
[2019-03-05] MEDS: METOPROLOL TART IMMED RELEASE 25 MG TABLET. PO SCH (08:56)
[2019-03-05] MEDS: PARoxetine 20 MG TABLET PO SCH (08:56)
[2019-03-05] MEDS: INSULIN LISPRO 300 UNITS/3 ML VIAL. SQ SCH ×4 (09:05→12:27)
[2019-03-05 10:35] VITALS: BP 176/104
[2019-03-05 12:43] VITALS: BP 166/106
--- NOTE | 2019-03-05 13:23 | PDOC ---
[employer] PROGRESS NOTE Chief Complaint Chief Complaint DKA History of Present Illness History of Present Illness Patient is a 23 year old male who presents with urinary frequency and excessive thirst, dizziness, blurred vision since last night. Patient is a diabetic type I and states that he does not regularly check his blood sugars and is on insulin. When I asked him how much insulin he takes he says it depends on how high his blood sugar is or what he's 8. Patient states he did not check his blood sugar this morning but yet gave himself 8 units of insulin. Patient states he ate a granola bar this morning. He denies any nausea, vomiting, abdominal pain, chest pain, shortness of air, diarrhea, numbness or tingling, syncope. Patient states he's also on lisinopril for high blood pressure. Patient states he took his medications as he supposed to this morning. Patient states he cannot remember the name of his primary care provider. Patient was seen and examined in ICU, patient was tachycardic, will begin beta- blockade. Patient seems in good spirits. 03/05: Patient was seen and examined. Patients anion gap has decreased to normal at 10. Patient seemed in good spirits, and is alert and oriented X3. Patient was educated about the importance of monitoring blood glucose and insulin administration at home. Patient is at baseline and will be discharged today. Vitals/I&O Vitals/I&O: Vital Signs Date Time Temp Pulse Resp B/P (MAP) Pulse Ox O2 Delivery O2 Flow Rate FiO2 03/05/19 12:43 92 16 166/106 (126) Room Air 03/05/19 10:35 99.0 100 99.0 I & O 03/04/19 03/04/19 03/05/19 15:00 23:00 07:00 Intake Total 500 ml 1550 ml Balance 500 ml 1550 ml Physical Exam General: Alert, Oriented X3, Cooperative, No acute distress Heart: Normal S1, Normal S2, Other (Tachycardic ) Abdomen: Soft Extremities: No clubbing, Normal pulses Skin: No rashes, No breakdown, No significant lesion Labs Labs: Laboratory Tests Test 03/04/19 17:09 03/04/19 20:18 03/05/19 03:35 03/05/19 06:57 Glucose (Fingerstick) 152 mg/dL (70-99) 104 mg/dL (70-99) 246 mg/dL (70-99) White Blood Count 6.7 x10^3/uL (4.0-11.0) Red Blood Count 4.38 x10^6/uL (4.30-5.70) Hemoglobin 14.2 g/dL (13.0-17.5) Hematocrit 39.8 % (39.0-53.0) Mean Corpuscular Volume 91 fL (79-100) Mean Corpuscular Hemoglobin 32 pg (25-35) Mean Corpuscular Hemoglobin Concent 36 g/dL (31-37) Red Cell Distribution Width 12.5 % (11.5-14.5) Platelet Count 311 x10^3/uL (140-400) Neutrophils (%) (Auto) 54 % (31-73) Lymphocytes (%) (Auto) 37 % (24-48) Monocytes (%) (Auto) 7 % (0-9) Eosinophils (%) (Auto) 2 % (0-3) Basophils (%) (Auto) 1 % (0-3) Neutrophils # (Auto) 3.6 x10^3/uL (1.8-7.7) Lymphocytes # (Auto) 2.4 x10^3/uL (1.0-4.8) Monocytes # (Auto) 0.4 x10^3/uL (0.0-1.1) Eosinophils # (Auto) 0.1 x10^3/uL (0.0-0.7) Basophils # (Auto) 0.0 x10^3/uL (0.0-0.2) Sodium Level 139 mmol/L (136-145) Potassium Level 3.7 mmol/L (3.5-5.1) Chloride Level 101 mmol/L (98-107) Carbon Dioxide Level 28 mmol/L (21-32) Anion Gap 10 (6-14) Blood Urea Nitrogen 7 mg/dL (8-26) Creatinine 0.8 mg/dL (0.7-1.3) Estimated GFR (Cockcroft-Gault) 122.0 BUN/Creatinine Ratio 9 (6-20) Glucose Level 199 mg/dL (70-99) Calcium Level 8.8 mg/dL (8.5-10.1) Total Bilirubin 0.3 mg/dL (0.2-1.0) Aspartate Amino Transf (AST/SGOT) 25 U/L (15-37) Alanine Aminotransferase (ALT/SGPT) 37 U/L (16-63) Alkaline Phosphatase 74 U/L (46-116) Total Protein 6.6 g/dL (6.4-8.2) Albumin 3.2 g/dL (3.4-5.0) Albumin/Globulin Ratio 0.9 (1.0-1.7) Test 03/05/19 11:16 Glucose (Fingerstick) 209 mg/dL (70-99) Review of Systems Review of Systems: Patient denies SOB, N/V and weakness. Assessment and Plan Assessmemt and Plan Problems Medical Problems: (1) DKA (diabetic ketoacidoses) Status: Acute (2) T1DM (type 1 diabetes mellitus) Status: Chronic (3) Underweight Status: Chronic Assessment: DKA, Type 1 DM, Underweight Plan: 1. discharge home today, patient at baseline Comment Review of Relevant I have reviewed the following items lynn (where applicable) has been applied. Medications: Current Medications Medications (Trade) Dose Ordered Sig/Edouard Route PRN Reason Start Time Stop Time Status Last Admin Dose Admin Metoprolol Tartrate (Lopressor) 12.5 mg BID PO 03/04/19 20:00 03/05/19 08:56 Loperamide HCl (Imodium) 2 mg PRN Q2HR PRN PO DIARRHEA 03/04/19 22:45 03/05/19 02:58 FRED CURRIE III DO Mar 05, 2019 13:23
[2019-03-05] MEDS: IV NORMAL SALINE 1000ML BAG 1,000 ML IV SCH (13:30)
[2019-03-05 14:10] VITALS: BP 157/101
[2019-03-05] MEDS ORDERED: METO25TA4 PO (14:33)
[2019-03-05] MEDS ORDERED: INSU100V6 SQ (14:36)
--- NOTE | 2019-03-05 15:00 | NUR ---
Discharge instructions reviewed with patient. Patient verbalizes understanding, prescription given. Dr. Diaz notified of blood pressure of 166/106 and is ok with discharge.
--- NOTE | 2019-03-06 20:17 | DS ---
DATE OF DISCHARGE: 03/05/2019 ADMISSION DIAGNOSIS: Diabetic ketoacidosis. DISCHARGE DIAGNOSES: Resolving diabetic ketoacidosis. HOSPITAL COURSE: The patient is a pleasant 23-year-old male, who presented with DKA. He was admitted to the ICU, on insulin drip and fluids. Once his gap cleared, we changed him to subcutaneous insulin. Yesterday, we saw him and examined him, he was doing well. We discharged to home with close outpatient followup. DISPOSITION: Home. ACTIVITY: As tolerated. DIET: 1800 calorie ADA. MEDICATIONS: Please see MRAD. TOTAL TIME: 32 minutes. JUVEL Ame CURRIE DO DR: HEATHER/juancarlos JOB#: [id number] / [id number]
== END 2019-03-05 15:40 | disposition home or self-care (01) | DRG 638 ==
LOC: ER 15:43 → 1 WEST ICU 16:50 → 2 SOUTH 03-04 14:48
PROVIDERS: ADMIT Internal Medicine; ATTEND Internal Medicine
DX: E10.10 Type 1 diabetes mellitus with ketoacidosis without coma (principal); Z68.1 Body mass index [BMI] 19.9 or less, adult; R63.6 Underweight; Z79.4 Long term (current) use of insulin
CPT/HCPCS: 36415; 71045; 80048; 80053; 80307; 81001; 82010; 82962; 83605; 83735; 84100; 85025; 93005; 96361; 96365; 96375; 96376; J1815; J2405; J3010; J7030; J7042; 99285-25; G0378

== ENCOUNTER 2021-07-06 15:44 | Inpatient (IN) | payer SELFPAY ==
[~2021-07-06] VITALS: Ht 170.2 cm; Wt 55.2 kg
[~2021-07-06 15:44] MED LIST: INSU100V6 SQ; LISI20TA18 PO; METO25TA4 PO; PARO20TA3 PO
--- NOTE | 2021-07-06 16:26 | PHYS DOC ---
Past Medical History Past Medical History: Diabetes-Type I, Hypertension Past Surgical History: No Surgical History Smoking Status: Never Smoker Alcohol Use: None Drug Use: None General Adult EDM: Chief Complaint: NAUSEA/VOMITING/DIARRHEA HPI: HPI: Patient is a 25 year old male who presents with nausea, vomiting, diarrhea and generalized abdominal pain. Symptoms began today. He denies urinary symptoms, though he does report decreased urine output. He denies chest pain, cough, dyspnea. He reports that he has had some brown blood streaks in his vomitus. No conner hematemesis. No bright red blood in his vomit. He denies melena or hematochezia. He denies recent travel, surgery, hospitalization. He denies recent antibiotic use. No known sick contacts. He reports being fully vaccinated against COVID-19. He does admit he has felt similarly when he has had DKA. He is a type I diabetic, reports compliance with insulin and diet. Review of Systems: Review of Systems: Constitutional: Denies fever, reports chills. HENT: Denies nasal congestion or sore throat. [] Respiratory: Denies cough or shortness of breath. [] Cardiovascular: Denies chest pain or edema. [] GI: Generalized abdominal pain, nausea, vomiting, diarrhea. : Denies urinary symptoms Musculoskeletal: Denies back pain or joint pain. Ports myalgias. Integument: Denies rash. [] Neurologic: Denies headache, focal weakness or sensory changes. [] Endocrine: Hyperglycemia Psychiatric: Denies depression or anxiety. [] Heart Score: C/O Chest Pain: No Risk Factors: Risk Factors: DM, Current or recent (<one month) smoker, HTN, HLP, family history of CAD, obesity. Risk Scores: Score 0 - 3: 2.5% MACE over next 6 weeks - Discharge Home Score 4 - 6: 20.3% MACE over next 6 weeks - Admit for Clinical Observation Score 7 - 10: 72.7% MACE over next 6 weeks - Early Invasive Strategies Allergies: Allergies: Allergies Coded Allergies Type Severity Reaction Last Updated Verified No Known Drug Allergies 03/03/19 No Physical Exam: PE: Constitutional: He is frail and chronically ill-appearing, moderately acutely ill appearing. Appears older than stated age. HENT: Normocephalic, atraumatic, oropharynx is patent and clear, mucous membranes tach Eyes: No scleral icterus Neck: Normal range of motion, no tenderness, supple, no stridor. No meningi smus. Cardiovascular: Tachycardic, regular, plu+2 dorsalis pedis and +2 radial pulses bilaterally. Lungs & Thorax: Bilateral breath sounds clear to auscultation, no rales, rhonchi or wheezes Abdomen: Abdomen soft, nondistended, diffusely and nonfocally tender to palpation, no guarding, no rebound tenderness, no rigidity, normal bowel sounds, no palpable masses organomegaly, no CVA tenderness. No flank abdominal ecchymoses. Skin: Warm, dry, no erythema, no rash. Mild diffuse pallor. No jaundice. No open wounds. Back: No tenderness, no CVA tenderness. [] Extremities: No tenderness, no cyanosis, no clubbing, ROM intact, no edema. [] Neurologic: He is awake, alert, oriented x3, no facial asymmetry, gait is steady and nonantalgic, no gait ataxia, gross motor is function is normal, speech is clear and fluent Psychologic: Affect normal, judgement normal, mood normal. [] Current Patient Data: Vital Signs: Vital Signs Date Time Temp Pulse Resp B/P (MAP) Pulse Ox O2 Delivery O2 Flow Rate FiO2 07/06/21 16:04 97.5 124 20 128/61 (83) 98 Room Air 97.5 EKG: EKG: [] Radiology/Procedures: Radiology/Procedures: IMAGING REPORT Signed PATIENT: SUGEY MALONE ACCOUNT: [id number] : 1995 LOCATION: [facility] ICU AGE: 25 SEX: M EXAM STATUS: ADM IN ORD. PHYSICIAN: FERMIN GALLARDO DO REASON: abd pain, n/v/diarrhea, leukocytosis PROCEDURE: CT ABD PELV W/ IV CONTRST ONLY INDICATION: Reason: abd pain, n/v/diarrhea, leukocytosis / Spl. Instructions: [id number] [phone] / History: COMPARISON: None. TECHNIQUE: Axial CT images were obtained through the abdomen and pelvis with intravenous contrast. One or more of the following individualized dose reduction techniques were utilized for this examination: 1. Automated exposure control; 2. Adjustment of the mA and/or kV according to patient size; 3. Use of iterative reconstruction technique. FINDINGS: Vascular: No abdominal aortic aneurysm. Hepatobiliary: Liver is prominent in size. Pancreas: No peripancreatic edema. Spleen: Spleen is mildly prominent size. Renal/Bladder: Multiple bilateral nonobstructive renal stones. Urinary bladder is thick walled. Right-sided moderate hydronephrosis and hydroureter with some urothelial enhancement as well as a 6 mm right proximal ureter stone. Gastrointestinal: Colonic wall is prominent in thickness but is not distended therefore could be from lack of distention but not well evaluated given this limitation. Appendix is only partially seen secondary to unopacified loops of bowel within the area. There is some degenerative changes of the spine with disc protrusion. IMPRESSION: * Right-sided hydronephrosis and hydroureter with right proximal ureter stone. * There is also some wall thickening of the urinary bladder as well as some urothelial enhancement within the right ureter. Would correlate with symptoms and lab markers to ensure there is not a superimposed urinary tract infection. Electronically signed by: Jeff Aguilera MD (07/06/2021 6:21 PM) [id number] DICTATED and SIGNED BY: JEFF AGUILERA MD DATE: 07/06/21 [id number] Course & Med Decision Making: Course & Med Decision Making Pertinent Labs and Imaging studies reviewed. (See chart for details) I ordered IV Zofran and 2 L of IV fluids. IV insulin drip is ordered. He does have evidence of marked leukocytosis, and elevated anion gap acidosis and hyperglycemia, consistent with diabetic ketoacidosis. I have discussed the findings, differential diagnosis and plan of care with him. I recommend hospitalization and admission. He is comfortable with this plan. He did produce diarrhea, stool studies are sent and are pending at this time. He has not yet urinated, I have requested this of him multiple times. He denies any subjective urinary symptoms previously in the day. Bladder does appear to be is thickened on CT, though this may be due to underdistention distention. He does have a right proximal ureteral stone on CT of the abdomen and pelvis, but he denies any flank pain, and he denies any gross hematuria or urinary symptoms. He will be admitted to the ICU for further evaluation of his pain, trending labs, DKA treatment, hydration, pending urine and stool studies. He is comfortable with this plan. He reports feeling much better at this time. He is accepted for admission by Dr. Grimaldo. Rosario Disclaimer: Rosario Disclaimer: This electronic medical record was generated, in whole or in part, using a voice recognition dictation system. Departure Departure Impression: Primary Impression: Nausea vomiting and diarrhea Additional Impression: Diabetic ketoacidosis Qualified Codes: E10.10 - Type 1 diabetes mellitus with ketoacidosis without coma Disposition: ADMITTED INPATIENT Admitting Physician: [facility] Condition: GUARDED (Dr. Grimaldo) Referrals: NO PCP (PCP) FERMIN GALLARDO DO Jul 06, 2021 16:26
[2021-07-06] MEDS ORDERED: ONDANSETRON PF 4 MG/2 ML VIAL. IVP ONE (16:45)
[2021-07-06] MEDS ORDERED: IV NORMAL SALINE 1000ML BAG 1,000 ML IV ONE ×2 (16:45→17:30)
[2021-07-06 16:52] LABS: BASO % 0 % (0-3); EOS % 0 % (0-3); HEMATOCRIT 53.4 % (39.0-53.0); HEMOGLOBIN 17.9 g/dL (13.0-17.5); LYMPH # 0.3 x10^3/uL (1.0-4.8); LYMPH % 1 % (24-48); MEAN CORPUSCULAR HEMOGLOBIN 30 pg (25-35); MEAN CORPUSCULAR HGB CONC 34 g/dL (31-37); MEAN CORPUSCULAR VOLUME 90 fL (79-100); MONO # 0.8 x10^3/uL (0.0-1.1); MONO % 3 % (0-9); NEUT # 25.5 x10^3/uL (1.8-7.7); NEUT % 96 % (31-73); PLATELET COUNT 430 x10^3/uL (140-400); RED BLOOD COUNT 5.94 x10^6/uL (4.30-5.70); RED CELL DISTRIBUTION WIDTH 13.2 % (11.5-14.5); WHITE BLOOD COUNT 26.7 x10^3/uL (4.0-11.0)
[2021-07-06 17:06] LABS: CALCIUM 10.5 mg/dL (8.5-10.1); CREATININE 1.2 mg/dL (0.7-1.3); POTASSIUM 5.2 mmol/L (3.5-5.1)
[2021-07-06 17:12] LABS: ALBUMIN 4.5 g/dL (3.4-5.0); MAGNESIUM 1.8 mg/dL (1.8-2.4); TOTAL BILIRUBIN 0.6 mg/dL (0.2-1.0)
[2021-07-06 17:26] LABS: % ATYL 1 % (0-0); % BANDS 28 % (0-9); % LYMPHS 1 % (24-48); % MONOS 3 % (0-10); % SEGS 67 % (35-66); PLT ESTIMATE INCREASED (ADEQUATE)
[2021-07-06] MEDS ORDERED: INSULIN REGULAR VIAL 100 UNIT in IV NORMAL SALINE 100ML 100 ML IV PRN (17:30)
[2021-07-06] MEDS ORDERED: PANTOPRAZOLE IV PUSH 40 MG VIAL. IVP ONE (17:30)
[2021-07-06] MEDS ORDERED: CONTRAST GIVEN. MC PRN (17:45)
[2021-07-06] MEDS ORDERED: IOHEXOL 300 MG/ML 100ML VIAL. IV ONE (17:45)
[2021-07-06 18:22] LABS: INFLUENZA A PATIENT NEGATIVE (NEGATIVE); INFLUENZA B PATIENT NEGATIVE (NEGATIVE)
--- NOTE | 2021-07-06 18:23 | RAD ---
INDICATION: Reason: abd pain, n/v/diarrhea, leukocytosis / Spl. Instructions: [id number] 75ML / History: COMPARISON: None. TECHNIQUE: Axial CT images were obtained through the abdomen and pelvis with intravenous contrast. One or more of the following individualized dose reduction techniques were utilized for this examinat ion: 1. Automated exposure control; 2. Adjustment of the mA and/or kV according to patient size; 3 . Use of iterative reconstruction technique. FINDINGS: Vascular: No abdominal aortic aneurysm. Hepatobiliary: Liver is prominent in size. Pancreas: No peripancreatic edema. Spleen: Spleen is mildly prominent size. Renal/Bladder: Multiple bilateral nonobstructive renal stones. Urinary bladder is thick walled. Right -sided moderate hydronephrosis and hydroureter with some urothelial enhancement as well as a 6 mm rig ht proximal ureter stone. Gastrointestinal: Colonic wall is prominent in thickness but is not distended therefore could be from lack of distention but not well evaluated given this limitation. Appendix is only partially seen sec ondary to unopacified loops of bowel within the area. There is some degenerative changes of the spine with disc protrusion. IMPRESSION: * Right-sided hydronephrosis and hydroureter with right proximal ureter stone. * There is also some wall thickening of the urinary bladder as well as some urothelial enhancement w ithin the right ureter. Would correlate with symptoms and lab markers to ensure there is not a superi mposed urinary tract infection. Electronically signed by: Unruly Calderon MD (07/06/2021 6:21 PM) [id number]
[2021-07-06] MEDS ORDERED: IV DEXTROSE 5 %-0.45 % NACL 1,000 ML IV SCH (18:45)
[2021-07-06] MEDS ORDERED: IV NORMAL SALINE 1000ML BAG 1,000 ML IV SCH (18:45)
[2021-07-06] MEDS ORDERED: IV 1/2 NORMAL SALINE 1,000 ML IV SCH (18:45)
[2021-07-06 19:00] VITALS: BP 111/64
[2021-07-06 19:02] LABS: BILIRUBIN,URINE NEGATIVE (NEG); CLARITY,URINE CLEAR; COLOR,URINE YELLOW; NITRITE,URINE NEGATIVE (NEG); PROTEIN,URINE NEGATIVE (NEG-TRACE); UROBILINOGEN,URINE 0.2 mg/dL (0.2 mg/dL)
[2021-07-06 19:03] LABS: HYALINE CASTS, URINE FEW /HPF
[2021-07-06 19:04] LABS: BACTERIA,URINE 0 /HPF (0-FEW); RBC,URINE 20-40 /HPF (0-2)
[2021-07-06 19:11] LABS: AMPHETAMINE/METHAMPHETAMINE NEG (NEG); BARBITURATES NEG (NEG); BENZODIAZEPINES NEG (NEG); CANNABINOIDS POS (NEG); COCAINE NEG (NEG); METHADONE NEG (NEG); OPIATES NEG (NEG); PHENCYCLIDINE NEG (NEG)
[2021-07-06 20:00] VITALS: BP 104/64
--- NOTE | 2021-07-06 20:24 | PDOC1 ---
History and Physical Date of Admission Date of Admission DATE: 07/06/21 TIME: 20:15 History of Present Illness History of Present Illness Glen is a 25 year old male who presents with one day of abd pain with nausea, vomiting, diarrhea. He has been feeling sick suddenly and now feels imrpoed after meds and insulin gtt started and IV fluid given. He reports decreased urine output, no COVID exposure, no one else he knows is currently ill. + vaccinated. He did not eat anything unusual yesterday, no travel. No conner hematemesis. r e does admit he has felt similarly when he has had DKA. He is a type I diabetic, reports compliance with insulin and diet. 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 Past Medical History Cardiovascular: No pertinent hx Pulmonary: No pertinent hx Heme/Onc: No pertinent hx Endocrine: Diabetes Family History Family History: No Significant Social History Smoke: No ALCOHOL: none Current Problem List Problem List Problems Medical Problems: (1) Diabetic ketoacidosis Status: Acute (2) Nausea vomiting and diarrhea Status: Acute Current Medications Current Medications Current Medications Sodium Chloride 1,000 ml @ 1,000 mls/hr 1X ONCE IV Last administered on 07/06/21at 16:45; Start 07/06/21 at 16:45; Stop 07/06/21 at 17:44; Status DC Ondansetron HCl (Zofran) 4 mg 1X ONCE IVP Last administered on 07/06/21at 16:45; Start 07/06/21 at 16:45; Stop 07/06/21 at 16:46; Status DC Sodium Chloride 1,000 ml @ 1,000 mls/hr 1X ONCE IV Last administered on 07/06/21at 17:30; Start 07/06/21 at 17:30; Stop 07/06/21 at 18:29; Status DC Insulin Human Regular 100 unit/ Sodium Chloride 101 ml @ 0 mls/hr CONT PRN PRN IV PER PROTOCOL Last administered on 07/06/21at 17:53; Start 07/06/21 at 17:30 Pantoprazole Sodium (PROTONIX VIAL for IV PUSH) 40 mg 1X ONCE IVP Last administered on 07/06/21at 17:51; Start 07/06/21 at 17:30; Stop 07/06/21 at 17:31; Status DC Iohexol (Omnipaque 300 Mg/ml) 75 ml 1X ONCE IV Last administered on 07/06/21at 17:45; Start 07/06/21 at 17:45; Stop 07/06/21 at 17:46; Status DC Info (CONTRAST GIVEN -- Rx MONITORING) 1 each PRN DAILY PRN MC SEE COMMENTS; Start 07/06/21 at 17:45; Stop 07/08/21 at 17:44 Sodium Chloride 1,000 ml @ 250 mls/hr Q4H IV ; Start 07/06/21 at 18:45; Stop 07/06/21 at 19:06; Status DC Sodium Chloride 1,000 ml @ 250 mls/hr Q4H IV ; Start 07/06/21 at 18:45; Status UNV Dextrose/Sodium Chloride 1,000 ml @ 250 mls/hr Q4H IV Last administered on 07/06/21at 18:45; Start 07/06/21 at 18:45 Active Scripts Active Reported Humalog (Insulin Lispro) 100 Unit/1 Ml Vial 1-15 Unit SQ TIDAC Metoprolol Tartrate 25 Mg Tablet 25 Mg PO BID Paroxetine Hcl 20 Mg Tablet 1 Tab PO DAILY Allergies Allergies: Coded Allergies: No Known Drug Allergies (Unverified , 03/03/19) ROS General: YES: Fatigue, Malaise; No: Chills, Night Sweats, Appetite, Other PSYCHOLOGICAL ROS: No: Anxiety, Behavioral Disorder, Concentration difficultie, Decreased libido, Depression, Disorientation, Hallucinations, Hostility, Irritablity, Memory difficulties, Mood Swings, Obsessive thoughts, Sleep disturbances, Suicidal ideation, Other Eyes: No Blurry vision, No Decreased vision, No Double vision, No Dry eyes, No Excessive tearing, No Eye Pain, No Itchy Eyes, No Loss of vision, No Photophobia, No Scotomata, No Uses contacts, No Uses glasses, No Other HEENT: No: Heacaches, Visual Changes, Hearing change, Nasal congestion, Nasal discharge, Oral lesions, Sinus pain, Sore Throat, Epistaxis, Sneezing, Snoring, Tinnitus, Vertigo, Vocal changes, Other Respiratory: No: Cough, Hemoptysis, Orthopnea, Pleuritic Pain, Shortness of breath, SOB with excertion, Sputum Changes, Stridor, Tachypnea, Wheezing, Other Cardiovascular: No Chest Pain, No Palpitations, No Orthopnea, No Paroxysmal Noc. Dyspnea, No Edema, No Lt Headedness, No Other Gastrointestinal: Yes Nausea, Yes Abdominal Pain, Yes Diarrhea Genitourinary: No Dysuria, No Frequency, No Incontinence, No Hematuria, No Retention, No Discharge, No Urgency, No Pain, No Flank Pain, No Other, No , No , No , No , No , No , No Musculoskeletal: No Gait Disturbance, No Joint Pain, No Joint Stiffness, No Joint Swelling, No Muscle Pain, No Muscular Weakness, No Pain In:, No Swelling In:, No Other Neurological: No Behavorial Changes, No Bowel/Bladder ControlChng, No Confusion, No Dizziness, No Gait Disturbance, No Headaches, No Impaired Coord/balance, No Memory Loss, No Numbness/Tingling, No Seizures, No Speech Problems, No Tremors, No Visual Changes, No Weakness, No Other Skin: No Dry Skin, No Eczema, No Hair Changes, No Lumps, No Mole Changes, No Mottling, No Nail Changes, No Pruritus, No Rash, No Skin Lesion Changes, No Other, No Acne Physical Exam General: Alert, Oriented X3, No acute distress HEENT: Atraumatic, EOMI Lungs: Clear to auscultation, Normal air movement Heart: S1S2, RRR, no gallops, no murmurs Abdomen: Soft, Other (mild tender, ) Extremities: No cyanosis, No edema Skin: No rashes, No significant lesion Neuro: Normal speech, Normal tone Psych/Mental Status: Mental status NL, Mood NL Vitals Vitals Vital Signs Date Time Temp Pulse Resp B/P (MAP) Pulse Ox O2 Delivery O2 Flow Rate FiO2 07/06/21 19:00 70 20 111/64 (80) 96 Room Air 07/06/21 16:04 97.5 97.5 Labs Labs Laboratory Tests Test 07/06/21 16:41 07/06/21 16:45 07/06/21 17:54 07/06/21 18:50 Magnesium Level 1.7 mg/dL (1.8-2.4) 1.8 mg/dL (1.8-2.4) White Blood Count 26.7 x10^3/uL (4.0-11.0) Red Blood Count 5.94 x10^6/uL (4.30-5.70) Hemoglobin 17.9 g/dL (13.0-17.5) Hematocrit 53.4 % (39.0-53.0) Mean Corpuscular Volume 90 fL (79-100) Mean Corpuscular Hemoglobin 30 pg (25-35) Mean Corpuscular Hemoglobin Concent 34 g/dL (31-37) Red Cell Distribution Width 13.2 % (11.5-14.5) Platelet Count 430 x10^3/uL (140-400) Neutrophils (%) (Auto) 96 % (31-73) Lymphocytes (%) (Auto) 1 % (24-48) Monocytes (%) (Auto) 3 % (0-9) Eosinophils (%) (Auto) 0 % (0-3) Basophils (%) (Auto) 0 % (0-3) Neutrophils # (Auto) 25.5 x10^3/uL (1.8-7.7) Lymphocytes # (Auto) 0.3 x10^3/uL (1.0-4.8) Monocytes # (Auto) 0.8 x10^3/uL (0.0-1.1) Eosinophils # (Auto) 0.0 x10^3/uL (0.0-0.7) Basophils # (Auto) 0.0 x10^3/uL (0.0-0.2) Segmented Neutrophils % 67 % (35-66) Band Neutrophils % 28 % (0-9) Lymphocytes % 1 % (24-48) Atypical Lymphocytes % (Manual) 1 % (0-0) Monocytes % 3 % (0-10) Platelet Estimate Increased (ADEQUATE) Sodium Level 131 mmol/L (136-145) Potassium Level 5.2 mmol/L (3.5-5.1) Chloride Level 97 mmol/L (98-107) Carbon Dioxide Level 18 mmol/L (21-32) Anion Gap 16 (6-14) Blood Urea Nitrogen 17 mg/dL (8-26) Creatinine 1.2 mg/dL (0.7-1.3) Estimated GFR (Cockcroft-Gault) 75.0 BUN/Creatinine Ratio 14 (6-20) Glucose Level 345 mg/dL (70-99) Calcium Level 10.5 mg/dL (8.5-10.1) Total Bilirubin 0.6 mg/dL (0.2-1.0) Aspartate Amino Transf (AST/SGOT) 19 U/L (15-37) Alanine Aminotransferase (ALT/SGPT) 28 U/L (16-63) Alkaline Phosphatase 100 U/L (46-116) Total Protein 9.0 g/dL (6.4-8.2) Albumin 4.5 g/dL (3.4-5.0) Albumin/Globulin Ratio 1.0 (1.0-1.7) Lipase 26 U/L (73-393) Influenza Type A Antigen Negative (NEGATIVE) Influenza Type B Antigen Negative (NEGATIVE) SARS-CoV-2 Antigen (Rapid) Negative (NEGATIVE) Urine Collection Type Unknown Urine Color Yellow Urine Clarity Clear Urine pH 7.0 (<5.0-8.0) Urine Specific [place] 1.010 (1.000-1.030) Urine Protein Negative mg/dL (NEG-TRACE) Urine Glucose (UA) >=1000 mg/dL (NEG) Urine Ketones (Stick) 40 mg/dL (NEG) Urine Blood Moderate (NEG) Urine Nitrite Negative (NEG) Urine Bilirubin Negative (NEG) Urine Urobilinogen Dipstick 0.2 mg/dL (0.2 mg/dL) Urine Leukocyte Esterase Negative (NEG) Urine RBC 20-40 /HPF (0-2) Urine WBC 1-4 /HPF (0-4) Urine Bacteria 0 /HPF (0-FEW) Urine Hyaline Casts Few /HPF Urine Opiates Screen Neg (NEG) Urine Methadone Screen Neg (NEG) Urine Barbiturates Neg (NEG) Urine Phencyclidine Screen Neg (NEG) Urine Amphetamine/Methamphetamine Neg (NEG) Urine Benzodiazepines Screen Neg (NEG) Urine Cocaine Screen Neg (NEG) Urine Cannabinoids Screen Pos (NEG) Urine Ethyl Alcohol Neg (NEG) Test 07/06/21 20:04 Glucose (Fingerstick) 241 mg/dL (70-99) Laboratory Tests Test 07/06/21 16:41 07/06/21 16:45 07/06/21 17:54 07/06/21 18:50 Magnesium Level 1.7 mg/dL (1.8-2.4) 1.8 mg/dL (1.8-2.4) White Blood Count 26.7 x10^3/uL (4.0-11.0) Red Blood Count 5.94 x10^6/uL (4.30-5.70) Hemoglobin 17.9 g/dL (13.0-17.5) Hematocrit 53.4 % (39.0-53.0) Mean Corpuscular Volume 90 fL (79-100) Mean Corpuscular Hemoglobin 30 pg (25-35) Mean Corpuscular Hemoglobin Concent 34 g/dL (31-37) Red Cell Distribution Width 13.2 % (11.5-14.5) Platelet Count 430 x10^3/uL (140-400) Neutrophils (%) (Auto) 96 % (31-73) Lymphocytes (%) (Auto) 1 % (24-48) Monocytes (%) (Auto) 3 % (0-9) Eosinophils (%) (Auto) 0 % (0-3) Basophils (%) (Auto) 0 % (0-3) Neutrophils # (Auto) 25.5 x10^3/uL (1.8-7.7) Lymphocytes # (Auto) 0.3 x10^3/uL (1.0-4.8) Monocytes # (Auto) 0.8 x10^3/uL (0.0-1.1) Eosinophils # (Auto) 0.0 x10^3/uL (0.0-0.7) Basophils # (Auto) 0.0 x10^3/uL (0.0-0.2) Segmented Neutrophils % 67 % (35-66) Band Neutrophils % 28 % (0-9) Lymphocytes % 1 % (24-48) Atypical Lymphocytes % (Manual) 1 % (0-0) Monocytes % 3 % (0-10) Platelet Estimate Increased (ADEQUATE) Sodium Level 131 mmol/L (136-145) Potassium Level 5.2 mmol/L (3.5-5.1) Chloride Level 97 mmol/L (98-107) Carbon Dioxide Level 18 mmol/L (21-32) Anion Gap 16 (6-14) Blood Urea Nitrogen 17 mg/dL (8-26) Creatinine 1.2 mg/dL (0.7-1.3) Estimated GFR (Cockcroft-Gault) 75.0 BUN/Creatinine Ratio 14 (6-20) Glucose Level 345 mg/dL (70-99) Calcium Level 10.5 mg/dL (8.5-10.1) Total Bilirubin 0.6 mg/dL (0.2-1.0) Aspartate Amino Transf (AST/SGOT) 19 U/L (15-37) Alanine Aminotransferase (ALT/SGPT) 28 U/L (16-63) Alkaline Phosphatase 100 U/L (46-116) Total Protein 9.0 g/dL (6.4-8.2) Albumin 4.5 g/dL (3.4-5.0) Albumin/Globulin Ratio 1.0 (1.0-1.7) Lipase 26 U/L (73-393) Influenza Type A Antigen Negative (NEGATIVE) Influenza Type B Antigen Negative (NEGATIVE) SARS-CoV-2 Antigen (Rapid) Negative (NEGATIVE) Urine Collection Type Unknown Urine Color Yellow Urine Clarity Clear Urine pH 7.0 (<5.0-8.0) Urine Specific [place] 1.010 (1.000-1.030) Urine Protein Negative mg/dL (NEG-TRACE) Urine Glucose (UA) >=1000 mg/dL (NEG) Urine Ketones (Stick) 40 mg/dL (NEG) Urine Blood Moderate (NEG) Urine Nitrite Negative (NEG) Urine Bilirubin Negative (NEG) Urine Urobilinogen Dipstick 0.2 mg/dL (0.2 mg/dL) Urine Leukocyte Esterase Negative (NEG) Urine RBC 20-40 /HPF (0-2) Urine WBC 1-4 /HPF (0-4) Urine Bacteria 0 /HPF (0-FEW) Urine Hyaline Casts Few /HPF Urine Opiates Screen Neg (NEG) Urine Methadone Screen Neg (NEG) Urine Barbiturates Neg (NEG) Urine Phencyclidine Screen Neg (NEG) Urine Amphetamine/Methamphetamine Neg (NEG) Urine Benzodiazepines Screen Neg (NEG) Urine Cocaine Screen Neg (NEG) Urine Cannabinoids Screen Pos (NEG) Urine Ethyl Alcohol Neg (NEG) Test 07/06/21 20:04 Glucose (Fingerstick) 241 mg/dL (70-99) VTE Prophylaxis Ordered VTE Prophylaxis Devices: No VTE Pharmacological Prophylaxi: Yes Assessment/Plan Assessment/Plan nausea and vomiting and abdominal pain Viral enteritis dehydration DKA ICU admit Justifications for Admission Other Justification VIC ABDALLA MD Jul 06, 2021 20:24
[2021-07-06] MEDS ORDERED: IV DEXTROSE 5% - 0.9 % NACL 1,000 ML IV SCH (20:30)
[2021-07-06] MEDS ORDERED: MAGNESIUM SULFATE 2GM 50 ML IV ONE (20:30)
[2021-07-06 21:00] VITALS: BP 104/58
[2021-07-06] MEDS ORDERED: ENOXAPARIN 40 MG/0.4 ML SYRINGE. SQ SCH (21:00)
[2021-07-06 21:47] LABS: CALCIUM 8.4 mg/dL (8.5-10.1); GFR 92.6; MAGNESIUM 1.6 mg/dL (1.8-2.4); PHOSPHORUS 1.8 mg/dL (2.6-4.7); POTASSIUM 4.8 mmol/L (3.5-5.1)
[2021-07-06 22:00] VITALS: BP 116/55
[2021-07-06] MEDS ORDERED: SODIUM PHOSPHATE 20 MMOL in IV NORMAL SALINE 250ML 250 ML IV PRN (22:00)
[2021-07-06] MEDS ORDERED: DEXTROSE 50% 25 GM / 50ML DISP.SYRIN. IV PRN (22:30)
[2021-07-06] MEDS: IV NORMAL SALINE 1000ML BAG 1,000 ML IV SCH (22:30)
[2021-07-06] MEDS ORDERED: IV DEXTROSE 5% 250 ML BAG. IV PRN (22:45)
[2021-07-06 23:00] VITALS: BP 108/54
[2021-07-06] MEDS ORDERED: INSULIN GLARGINE SYRINGE. SQ SCH (23:00)
[2021-07-07] VITALS (14 sets, daily range): BP systolic 85–122; BP diastolic 41–74
[2021-07-07] MEDS ORDERED: ONDANSETRON PF 4 MG/2 ML VIAL. IVP PRN (01:00)
[2021-07-07] MEDS ORDERED: ONDANSETRON PF 4 MG/2 ML VIAL. ONE (01:00)
[2021-07-07] MEDS ORDERED: ACETAMINOPHEN 325 MG TABLET. PO PRN (02:15)
[2021-07-07 03:52] LABS: CREATININE 0.7 mg/dL (0.7-1.3); GFR 139.8; POTASSIUM 4.1 mmol/L (3.5-5.1)
[2021-07-07 04:06] LABS: MAGNESIUM 2.1 mg/dL (1.8-2.4); PHOSPHORUS 4.2 mg/dL (2.6-4.7)
[2021-07-07] MEDS: INSULIN LISPRO 300 UNITS/3 ML VIAL. SQ SCH ×3 (07:51→17:00)
[2021-07-07] MEDS ORDERED: INSULIN LISPRO 300 UNITS/3 ML VIAL. SQ SCH ×2 (08:00→17:00)
[2021-07-07] MEDS: PARoxetine 20 MG TABLET PO SCH ×2 (12:00→12:15)
[2021-07-07] MEDS ORDERED: METOPROLOL TART IMMED RELEASE 25 MG TABLET. PO SCH (12:00)
[2021-07-07] MEDS: IV NORMAL SALINE 1000ML BAG 1,000 ML IV SCH (12:13)
--- NOTE | 2021-07-07 12:17 | PDOC ---
[facility] PROGRESS NOTE Date of Service DOS: DATE: 07/07/21 TIME: 12:14 Chief Complaint Chief Complaint DKA --> out of DKA now gap closed, sugars under control but labile; closely adjust insulin while admitted, will need close outpatient followup Chronic Diarrhea --> frequent large-volume urgent diarrhea after eating. Clinically stable he can follow-up with PCP and/or GI outpatient. History of Present Illness History of Present Illness 07/07 Evaluated examined at bedside. Resting in bed asleep. No apparent distress. Discussed bedside RN patient had been doing well this morning okay to transfer out of ICU. Closely monitor sugars and adjust insulin today can likely discharge tomorrow. Vitals/I&O Vitals/I&O: Vital Signs Date Time Temp Pulse Resp B/P (MAP) Pulse Ox O2 Delivery O2 Flow Rate FiO2 07/07/21 11:08 62 122/53 (76) Room Air 07/07/21 07:20 97.8 16 97.8 07/07/21 06:00 98 I & O 07/06/21 07/06/21 07/07/21 15:00 23:00 07:00 Intake Total 800 ml 2740.8 ml Output Total 400 ml Balance 800 ml 2340.8 ml Physical Exam General: Alert, Oriented X3, Cooperative, No acute distress Heart: Regular rate Lungs: Clear Abdomen: Soft, Other (mild tender, ) Extremities: No cyanosis, No edema Skin: No rashes, No significant lesion Labs Labs: Laboratory Tests Test 07/06/21 16:41 07/06/21 16:45 07/06/21 17:54 07/06/21 18:50 Magnesium Level 1.7 mg/dL (1.8-2.4) 1.8 mg/dL (1.8-2.4) White Blood Count 26.7 x10^3/uL (4.0-11.0) Red Blood Count 5.94 x10^6/uL (4.30-5.70) Hemoglobin 17.9 g/dL (13.0-17.5) Hematocrit 53.4 % (39.0-53.0) Mean Corpuscular Volume 90 fL (79-100) Mean Corpuscular Hemoglobin 30 pg (25-35) Mean Corpuscular Hemoglobin Concent 34 g/dL (31-37) Red Cell Distribution Width 13.2 % (11.5-14.5) Platelet Count 430 x10^3/uL (140-400) Neutrophils (%) (Auto) 96 % (31-73) Lymphocytes (%) (Auto) 1 % (24-48) Monocytes (%) (Auto) 3 % (0-9) Eosinophils (%) (Auto) 0 % (0-3) Basophils (%) (Auto) 0 % (0-3) Neutrophils # (Auto) 25.5 x10^3/uL (1.8-7.7) Lymphocytes # (Auto) 0.3 x10^3/uL (1.0-4.8) Monocytes # (Auto) 0.8 x10^3/uL (0.0-1.1) Eosinophils # (Auto) 0.0 x10^3/uL (0.0-0.7) Basophils # (Auto) 0.0 x10^3/uL (0.0-0.2) Segmented Neutrophils % 67 % (35-66) Band Neutrophils % 28 % (0-9) Lymphocytes % 1 % (24-48) Atypical Lymphocytes % (Manual) 1 % (0-0) Monocytes % 3 % (0-10) Platelet Estimate Increased (ADEQUATE) Sodium Level 131 mmol/L (136-145) Potassium Level 5.2 mmol/L (3.5-5.1) Chloride Level 97 mmol/L (98-107) Carbon Dioxide Level 18 mmol/L (21-32) Anion Gap 16 (6-14) Blood Urea Nitrogen 17 mg/dL (8-26) Creatinine 1.2 mg/dL (0.7-1.3) Estimated GFR (Cockcroft-Gault) 75.0 BUN/Creatinine Ratio 14 (6-20) Glucose Level 345 mg/dL (70-99) Calcium Level 10.5 mg/dL (8.5-10.1) Total Bilirubin 0.6 mg/dL (0.2-1.0) Aspartate Amino Transf (AST/SGOT) 19 U/L (15-37) Alanine Aminotransferase (ALT/SGPT) 28 U/L (16-63) Alkaline Phosphatase 100 U/L (46-116) Total Protein 9.0 g/dL (6.4-8.2) Albumin 4.5 g/dL (3.4-5.0) Albumin/Globulin Ratio 1.0 (1.0-1.7) Lipase 26 U/L (73-393) Influenza Type A Antigen Negative (NEGATIVE) Influenza Type B Antigen Negative (NEGATIVE) SARS-CoV-2 Antigen (Rapid) Negative (NEGATIVE) Urine Collection Type Unknown Urine Color Yellow Urine Clarity Clear Urine pH 7.0 (<5.0-8.0) Urine Specific [place] 1.010 (1.000-1.030) Urine Protein Negative mg/dL (NEG-TRACE) Urine Glucose (UA) >=1000 mg/dL (NEG) Urine Ketones (Stick) 40 mg/dL (NEG) Urine Blood Moderate (NEG) Urine Nitrite Negative (NEG) Urine Bilirubin Negative (NEG) Urine Urobilinogen Dipstick 0.2 mg/dL (0.2 mg/dL) Urine Leukocyte Esterase Negative (NEG) Urine RBC 20-40 /HPF (0-2) Urine WBC 1-4 /HPF (0-4) Urine Bacteria 0 /HPF (0-FEW) Urine Hyaline Casts Few /HPF Urine Opiates Screen Neg (NEG) Urine Methadone Screen Neg (NEG) Urine Barbiturates Neg (NEG) Urine Phencyclidine Screen Neg (NEG) Urine Amphetamine/Methamphetamine Neg (NEG) Urine Benzodiazepines Screen Neg (NEG) Urine Cocaine Screen Neg (NEG) Urine Cannabinoids Screen Pos (NEG) Urine Ethyl Alcohol Neg (NEG) Test 07/06/21 20:04 07/06/21 21:11 07/06/21 21:25 07/06/21 22:05 Glucose (Fingerstick) 241 mg/dL (70-99) 186 mg/dL (70-99) 129 mg/dL (70-99) Sodium Level 135 mmol/L (136-145) Potassium Level 4.8 mmol/L (3.5-5.1) Chloride Level 102 mmol/L (98-107) Carbon Dioxide Level 25 mmol/L (21-32) Anion Gap 8 (6-14) Blood Urea Nitrogen 12 mg/dL (8-26) Creatinine 1.0 mg/dL (0.7-1.3) Estimated GFR (Cockcroft-Gault) 92.6 Glucose Level 177 mg/dL (70-99) Calcium Level 8.4 mg/dL (8.5-10.1) Phosphorus Level 1.8 mg/dL (2.6-4.7) Magnesium Level 1.6 mg/dL (1.8-2.4) Test 07/06/21 23:21 07/06/21 23:44 07/07/21 00:18 07/07/21 01:15 Glucose (Fingerstick) 62 mg/dL (70-99) 66 mg/dL (70-99) 113 mg/dL (70-99) 192 mg/dL (70-99) Test 07/07/21 03:10 07/07/21 04:52 07/07/21 07:31 07/07/21 09:08 Sodium Level 133 mmol/L (136-145) Potassium Level 4.1 mmol/L (3.5-5.1) Chloride Level 101 mmol/L (98-107) Carbon Dioxide Level 22 mmol/L (21-32) Anion Gap 10 (6-14) Blood Urea Nitrogen 9 mg/dL (8-26) Creatinine 0.7 mg/dL (0.7-1.3) Estimated GFR (Cockcroft-Gault) 139.8 Glucose Level 131 mg/dL (70-99) Calcium Level 8.0 mg/dL (8.5-10.1) Phosphorus Level 4.2 mg/dL (2.6-4.7) Magnesium Level 2.1 mg/dL (1.8-2.4) Glucose (Fingerstick) 90 mg/dL (70-99) 60 mg/dL (70-99) 157 mg/dL (70-99) Test 07/07/21 12:10 Glucose (Fingerstick) 248 mg/dL (70-99) Assessment and Plan Assessmemt and Plan Problems Medical Problems: (1) Diabetic ketoacidosis Status: Acute (2) Nausea vomiting and diarrhea Status: Acute Comment Review of Relevant I have reviewed the following items lynn (where applicable) has been applied. Medications: Current Medications Medications (Trade) Dose Ordered Sig/Edouard Route PRN Reason Start Time Stop Time Status Last Admin Dose Admin Sodium Chloride 1,000 ml @ 1,000 mls/hr 1X ONCE IV 07/06/21 16:45 07/06/21 17:44 DC 07/06/21 16:45 Ondansetron HCl (Zofran) 4 mg 1X ONCE IVP 07/06/21 16:45 07/06/21 16:46 DC 07/06/21 16:45 Sodium Chloride 1,000 ml @ 1,000 mls/hr 1X ONCE IV 07/06/21 17:30 07/06/21 18:29 DC 07/06/21 17:30 Insulin Human Regular 100 unit/ Sodium Chloride 101 ml @ 0 mls/hr CONT PRN PRN IV PER PROTOCOL 07/06/21 17:30 07/06/21 17:53 Pantoprazole Sodium (PROTONIX VIAL for IV PUSH) 40 mg 1X ONCE IVP 07/06/21 17:30 07/06/21 17:31 DC 07/06/21 17:51 Iohexol (Omnipaque 300 Mg/ml) 75 ml 1X ONCE IV 07/06/21 17:45 07/06/21 17:46 DC 07/06/21 17:45 Dextrose/Sodium Chloride 1,000 ml @ 250 mls/hr Q4H IV 07/06/21 18:45 07/06/21 20:31 DC 07/06/21 18:45 Magnesium Sulfate 50 ml @ 25 mls/hr 1X ONCE IV 07/06/21 20:30 07/06/21 22:29 DC 07/06/21 22:07 Enoxaparin Sodium (Lovenox 40mg Syringe) 40 mg Q24H SQ 07/06/21 21:00 07/06/21 22:14 Sodium Phosphate 20 mmol/Sodium Chloride 256.6667 ml @ 62.5 mls/hr 1X PRN PRN IV SEE COMMENTS 07/06/21 22:00 07/06/21 22:40 Sodium Chloride 1,000 ml @ 75 mls/hr [id number] IV 07/06/21 22:30 07/06/21 22:30 Insulin Glargine (Lantus Syringe) 25 unit QHS SQ 07/06/21 23:00 07/06/21 22:54 Ondansetron HCl (Zofran) 4 mg PRN Q6HRS PRN IVP NAUSEA/VOMITING 1ST CHOICE 07/07/21 01:00 07/07/21 01:01 Acetaminophen (Tylenol) 650 mg PRN Q6HRS PRN PO MILD PAIN / TEMP > 100.3'F 07/07/21 02:15 07/07/21 02:11 Justifications for Admission Other Justification ARNALDO ARAUJO MD 10, 2022 12:17
[2021-07-07] MEDS ORDERED: INSULIN GLARGINE SYRINGE. SQ SCH (21:00)
--- NOTE | 2021-07-10 15:59 | PDOC3 ---
[facility]-Discharge Summary Date of Admission: Date of Admission: Jul 06, 2021 Date of Discharge: Date of Discharge: Jul 07, 2021 Admission Diagnosis: Admitting Diagnosis: DKA Hospital Course: Hospital Course: Chief Complaint DKA --> out of DKA now gap closed, sugars under control but labile; closely adjust insulin while admitted, will need close outpatient followup Chronic Diarrhea --> frequent large-volume urgent diarrhea after eating. Clinically stable he can follow-up with PCP and/or GI outpatient. History of Present Illness History of Present Illness 07/07 Evaluated examined at bedside. Resting in bed asleep. No apparent distress. Discussed bedside RN patient had been doing well this morning okay to transfer out of ICU. Closely monitor sugars and adjust insulin today can likely discharge Pqatient elected to d/c this day. Greater than 30 minutes spent on discharge. 19 minutes advance care planning in relation to diabetic control Disposition: Disposition/Orders: D/C to Home Activity: Activity: Resume previous activity Diet: Diet: other (diabetic) Medications: Home Meds Reported Medications Insulin Lispro (HUMALOG) 100 Unit/1 Ml Vial, 1-15 UNIT SQ TIDAC for diabetes, VIAL 03/05/19 Metoprolol Tartrate (METOPROLOL TARTRATE) 25 Mg Tablet, 25 MG PO BID for FOR HYPERTENSION, #60 TAB 0 Refills 03/05/19 Paroxetine Hcl (PAROXETINE HCL) 20 Mg Tablet, 1 TAB PO DAILY for Anxiety, #30 TAB 5 Refills 03/03/19 Scheduled Insulin Lispro (Humalog), 1-15 UNIT SQ TIDAC, (Reported) Metoprolol Tartrate (Metoprolol Tartrate), 25 MG PO BID, (Reported) Paroxetine Hcl (Paroxetine Hcl), 1 TAB PO DAILY, (Reported) Justicifation of Admission Dx: Justifications for Admission: Justification of Admission Dx: Yes (DKA) ARNALDO ARAUJO MD Jul 10, 2021 15:59
== END 2021-07-07 18:24 | disposition home or self-care (01) | DRG 391 ==
LOC: ER 15:44 → 1 WEST ICU 17:18
PROVIDERS: ADMIT Internal Medicine; ATTEND Internal Medicine
DX: A08.4 Viral intestinal infection, unspecified (principal); E10.10 Type 1 diabetes mellitus with ketoacidosis without coma; N13.2 Hydronephrosis with renal and ureteral calculous obstruction; E86.0 Dehydration; I10 Essential (primary) hypertension; Z79.4 Long term (current) use of insulin
CPT/HCPCS: 36415; 74177; 80048; 80053; 80307; 81001; 82962; 83690; 83735; 84100; 85007; 85025; 87428; 87493; 87505; 96361; 96365; 96375; C9113; J1650; J1815; J2405; J3475; J7030; J7042; J7050; Q9967; 99285-25; G0378